=== PATIENT | female | born 1940 | race Asian ===

== ENCOUNTER 2017-08-30 09:33 | Emergency (ER) | payer MEDICARE, OTHER ==
[~2017-08-30] VITALS: Ht 154.9 cm; Wt 56.8 kg
[2017-08-30] MEDS ORDERED: ASPI-556 PO (09:49)
[2017-08-30] MEDS ORDERED: SIMV-260 PO (09:49)
[2017-08-30] MEDS ORDERED: AMLO-512 PO (09:49)
[2017-08-30] MEDS ORDERED: VALS160T2 PO (09:49)
[2017-08-30] MEDS ORDERED: CYAN250010 PO (09:49)
[2017-08-30] MEDS ORDERED: VITAD400 PO (09:49)
[2017-08-30] MEDS ORDERED: MULT-1251 PO (09:49)
[2017-08-30] MEDS ORDERED: OMEG-135 PO (09:49)
[2017-08-30] MEDS ORDERED: DONE10TA8 PO (09:49)
[2017-08-30] MEDS ORDERED: SODIUM CHLORIDE 0.9% 1,000 ML IV ONE (10:45)
[2017-08-30] MEDS ORDERED: ONDANSETRON HCL 4 MG/2 ML VIAL IVP ONE (10:45)
[2017-08-30] MEDS ORDERED: OMEG-102 PO (10:46)
[2017-08-30 11:19] LABS: BASOPHILS % (AUTO) 0.8 % (0.0-2.0); EOSINOPHILS % (AUTO) 0.3 % (1.0-6.0); HEMATOCRIT 38.9 % (36-46); HEMOGLOBIN 13.3 g/dL (12.0-16.0); LYMPHOCYTES # (AUTO) 1.3 K/uL (1.0-4.8); LYMPHOCYTES % (AUTO) 9.6 % (22.0-44.0); MEAN CORPUSCULAR HEMOGLOBIN 28.9 pg (26.0-34.0); MEAN CORPUSCULAR HGB CONC 34.1 G/dL (31.0-37.0); MEAN CORPUSCULAR VOLUME 85 fL (80-100); MONOCYTES # (AUTO) 0.4 K/uL (0.1-1.0); MONOCYTES % (AUTO) 2.9 % (2.0-9.0); NEUTROPHILS # (AUTO) 12.2 K/uL (1.8-7.7); PLATELET COUNT (AUTO) 381 K/uL (150-450); RED BLOOD CELL COUNT(AUTO) 4.59 MIL/uL (4.00-5.20); RED CELL DISTRIBUTION WIDTH 15.1 % (11.5-14.5)
[2017-08-30 11:21] LABS: NEUTROPHILS % (AUTO) 86.4 % (40.0-70.0)
[2017-08-30 11:26] LABS: ANION GAP 10 mmol/L (8-16); CALCIUM, TOTAL 9.4 mg/dL (8.8-10.5); CARBON DIOXIDE 26 mmol/L (22-29); CHLORIDE 100 mmol/L (98-107); CREATININE 0.87 mg/dL (0.60-1.30); GLOMERULAR FILTR. RATE CALC > 60 mL/min (>60); GLUCOSE,RANDOM 198 mg/dL (70-110); POTASSIUM 3.7 mmol/L (3.5-5.1); SODIUM SERUM 136 mmol/L (136-145); UREA NITROGEN, BLOOD 15 mg/dL (7-18)
[2017-08-30 11:27] LABS: PROTHROMBIN TIME 10.2 SEC (9.4-11.6)
[2017-08-30 11:33] LABS: ALANINE AMINOTRANSFERASE 21 U/L (12-78); ALBUMIN 3.4 g/dL (3.4-5.0); ALKALINE PHOSPHATASE 109 U/L (46-116); ASPARTATE AMINOTRANSFERASE 25 U/L (15-37); BILIRUBIN,TOTAL 0.4 mg/dL (0.1-1.0); CREATINE KINASE, TOTAL 44 U/L (26-192); LIPASE 248 U/L (73-393); TOTAL PROTEIN, SERUM 8.8 g/dL (6.4-8.2)
[2017-08-30 12:16] LABS: B-TYPE NATRIURETIC PEPTIDE 29 pg/mL (0-100)
[2017-08-30 13:34] LABS: BILIRUBIN,URINE NEGATIVE (NEGATIVE); GLUCOSE, URINE (UA) NEGATIVE (NEGATIVE); KETONES,URINE NEGATIVE (NEGATIVE); LEUKOCYTE ESTERASE ,URINE NEGATIVE (NEGATIVE); NITRATE,URINE NEGATIVE (NEGATIVE); OCCULT BLOOD,URINE NEGATIVE (NEGATIVE); PH,URINE 7.5 (5.0-8.0); PROTEIN,URINE NEGATIVE (NEGATIVE); UROBILINOGEN,URINE 0.2 mg/dL (<=1.0)
[2017-08-30 14:01] VITALS: BP 135/66
[2017-08-30 14:12] LABS: APPEARANCE,URINE HAZY (CLEAR)
== END 2017-08-30 15:35 | disposition home or self-care (01) ==
LOC: EMS 09:42
DX: R10.13 Epigastric pain (principal); R11.2 Nausea with vomiting, unspecified; I11.9 Hypertensive heart disease without heart failure; E78.00 Pure hypercholesterolemia, unspecified; Z79.82 Long term (current) use of aspirin
CPT/HCPCS: 36415; 74022; 76705; 80053; 81003; 82550; 83690; 83880; 84484; 85025; 85610; 85730; 93005; 96360; 96361; 96374; 99285; J2405; J7030

== ENCOUNTER 2020-03-27 17:11 | Emergency (ER) | payer MEDICARE, OTHER ==
[~2020-03-27] VITALS: Ht 152.4 cm; Wt 56.8 kg
[~2020-03-27 17:11] MED LIST: AMLO-258 PO; ASPI-556 PO; CHOL400T56 PO; CYAN250010 PO; DONE10TA8 PO; MULT-1251 PO; OMEG-102 PO; SIMV-260 PO; VALS160T2 PO
[2020-03-27 18:18] VITALS: BP 148/86
== END 2020-03-27 18:27 | disposition home or self-care (01) ==
LOC: EMS 17:11
DX: U07.1 COVID-19 (principal); I11.9 Hypertensive heart disease without heart failure; E78.00 Pure hypercholesterolemia, unspecified; Z79.899 Other long term (current) drug therapy; Z79.82 Long term (current) use of aspirin
CPT/HCPCS: 99283; U0003